=== PATIENT | female | born 1995 ===

== ENCOUNTER 2018-10-27 18:31 | Emergency (ER) | payer MEDICAID ==
--- NOTE | 2018-10-27 18:36 | Event Note ---
ED Screening Note ED Screening Note: 4-30 VAG BLEED PREG M1 MISCARRIAGE OCT NO OBGYN CARE PMH NONE RX PSH REJI KILGORE This initial assessment/diagnostic orders/clinical plan/treatment(s) is/are subject to change based on patients health status, clinical progression and re- assessment by fellow clinical providers in the ED. Further treatment and workup at subsequent clinical providers discretion. Patient/guardian urged not to elope from the ED as their condition may be serious if not clinically assessed and managed. Initial orders include: <MARTÍNEZ MO - Last Filed: 10/27/18 18:57> ED Screening Note: A physician and/or other qualified medical personnel has recommended that the patient receive further examination and/or treatment beyond their Medical Screening Exam. The risks and benefits were explained. The patient was informed of their right to emergency care. Patient left before final disposition of their medical condition. This note has been generated by me, Dr. Jose Manuel Varghese III, MD, the [facility] Physician for the emergency department. I have not seen this patient personally. <JOSE MANUEL VARGHESE - Last Filed: 11/04/18 08:27>
[2018-10-27 18:59] VITALS: BP 152/83
[2018-10-27 19:34] LABS: Bilirubin,Urine NEG (Negative); Blood,Urine MOD (Negative); Color,Urine Yellow (Yellow); Mucus,Urine FEW /HPF; Protein,Urine <15 mg/dL mg/dL (Negative); Urobilinogen,Urine < 2.0 mg/dL (<2.0)
[2018-10-27 19:35] LABS: Hematocrit 38.3 % (30.3-42.9); Hemoglobin 12.9 gm/dl (10.1-14.3); Mean Corpuscular HGB Conc 34 % (30-34); Mean Corpuscular Volume 86 fl (79-97); Platelet Count 335 K/mm3 (140-440); Red Blood Count 4.43 M/mm3 (3.65-5.03); Red Cell Distribution Width 14.2 % (13.2-15.2)
[2018-10-27 19:59] LABS: BUN/Creatinine Ratio 20; Blood Urea Nitrogen 10 mg/dL (7-17); Calcium 8.8 mg/dL (8.4-10.2); Hemolysis Index 5
== END 2018-10-27 20:57 | disposition left against medical advice (07) ==
LOC: ED 18:31
DX: N93.9 Abnormal uterine and vaginal bleeding, unspecified (principal); Z53.21 Procedure and treatment not carried out due to patient leaving prior to being seen by health care provider
CPT/HCPCS: 36415; 80048; 81001; 84702; 85027; 86900; 86901